=== PATIENT | female | born 1980 | race Two or more races ===

== ENCOUNTER 2021-01-23 18:42 | Emergency (ER) | payer SELFPAY ==
[2021-01-23] MEDS ORDERED: KETOROLAC TROMETH 60MG/2ML VIAL IM ONE (20:30)
[2021-01-23] MEDS ORDERED: LIDOCAINE 1% HCL (LOCAL ANESTH.) INJ 20ML MDV ID ONE (20:30)
[2021-01-23 21:10] VITALS: BP 137/93
[2021-01-23] MEDS ORDERED: NEOMYCIN-BACITRACIN-POLYM UNITDOSE PKG TOP OINT TOP ONE (21:15)
== END 2021-01-23 21:35 | disposition home or self-care (01) ==
LOC: ER 18:42
DX: S91.204A Unspecified open wound of right lesser toe(s) with damage to nail, initial encounter (principal); W22.8XXA Striking against or struck by other objects, initial encounter; Y93.89 Activity, other specified; Y92.89 Other specified places as the place of occurrence of the external cause; Y99.8 Other external cause status
CPT/HCPCS: 11730; 73620; 96372; 99284; J1885; J2001